=== PATIENT | female | born 1955 | race Caucasian/White ===

== ENCOUNTER 2018-01-02 12:42 | Outpatient (CLI) | payer BC ==
--- NOTE | 2018-01-03 08:17 | Diagnostic Imaging Report ---
Indication: COUGH Technique: XRAY Chest 2v Comparison: None Findings: Heart size and mediastinal contours are within normal limit. There are mild atherosclerotic calcifications noted in the aortic arch. There is no focal airspace consolidation, pleural effusion or pneumothorax. There are mild degenerative changes of the spine. Calcific densities projecting adjacent to the right humeral head. No acute osseous abnormality is seen. IMPRESSION: No radiographic evidence of acute cardiopulmonary disease. Calcific densities projecting adjacent to the right humeral head, possibly related to calcific tendinitis. Clinical correlation recommended. Dedicated right shoulder radiographs and/or MRI may be obtained as clinically indicated for further evaluation.
== END 2018-01-02 14:42 | disposition home or self-care (01) ==
LOC: RAD 12:42
DX: Z01.818 Encounter for other preprocedural examination (principal); R05 Cough
CPT/HCPCS: 71046